=== PATIENT | male | born 1970 | race Caucasian/White ===

== ENCOUNTER 2016-12-29 22:20 | Emergency (ER) | payer OTHER, MEDICARE ==
--- NOTE | 2016-12-29 22:55 | ED PSYCHIATRIC COMPLAINT ---
History of Present Illness General Chief Complaint: Psychiatric Related Complaint Stated Complaint: ETOH AND SI Source: patient, old records Exam Limitations: no limitations Vital Signs & Intake/Output Vital Signs & Intake/Output Vital Signs Date Time Temp Pulse Resp B/P Pulse O2 O2 Flow FiO2 Ox Delivery Rate 12/30 1557 Room Air 12/30 1530 98.1 78 16 152/72 12/30 1530 98.1 78 16 152/72 96 Room Air 12/30 1420 98.3 81 15 135/84 12/30 1420 98.3 81 15 135/74 100 Room Air 12/30 0957 96.9 71 18 142/79 12/30 0956 96.9 71 18 142/79 99 Room Air 12/30 0916 99 Room Air 12/30 0702 97.5 86 16 132/78 94 Room Air 12/30 0348 97.1 82 16 138/72 96 Room Air 12/30 0048 97.1 83 16 138/70 95 Room Air 12/29 2301 Room Air 12/29 2255 96.9 83 16 142/67 92 Room Air ED Intake and Output 12/30 0000 12/29 1200 Intake Total 0 Output Total Balance 0 Intake, Oral 0 Triage Note: PT BIBA FOR ETOH AND +SI. PT DENIES HI. PT CALM AND COOPERATIVE ON ARRIVAL. Triage Nurses Notes Reviewed? yes Onset: Just prior to arrival Duration: hour(s):, constant, continues in ED Timing: recent history Severity: severe Associated Symptoms: impaired concentration, insomnia, suicidal ideation HPI: Patient reports being an alcoholic with cirrhosis continuing to drink feeling depressed with insomnia and thoughts of killing himself without a specific plan. He denies fever chills nausea vomiting diarrhea abdominal pain chest pain shortness of breath headache dysuria rash bleeding hallucination homicidal ideation. (NAVEED ANGELES MD) Allergies Coded Allergies: No Known Allergies (12/30/16) Reconcile Medications Furosemide (Unknown Strength) TABLET (Unknown Dose) PO DAILY WATER PILL ( Reported) Spironolactone (Aldactone) 50 MG TABLET 1 TAB PO DAILY LIVER (Reported) (JANEE FERNÁNDEZ DO) Past History Travel History Traveled to [place] past 21 day No Medical History Any Pertinent Medical History? see below for history Cardiovascular: hypertension Gastrointestinal: cirrhosis Surgical History Surgical History: non-contributory Psychosocial History What is your primary language Hebrew Tobacco Use: Current Not Daily ETOH Use: occasional use Family History Hx Contributory? No (NAVEED ANGELES MD) Review of Systems Review of Systems Constitutional: Reports: no symptoms. EENTM: Reports: no symptoms. Respiratory: Reports: no symptoms. Cardiovascular: Reports: no symptoms. GI: Reports: no symptoms. Genitourinary: Reports: no symptoms. Musculoskeletal: Reports: no symptoms. Skin: Reports: no symptoms. Neurological/Psychological: Reports: see HPI, depressed, emotional problems. Hematologic/Endocrine: Reports: no symptoms. Immunologic/Allergic: Reports: no symptoms. All Other Systems: Reviewed and Negative (NAVEED ANGELES MD) Physical Exam Physical Exam General Appearance: well developed/nourished, alert, awake, anxious, mild distress Head: atraumatic, normal appearance Eyes: Bilateral: normal appearance, PERRL, EOMI. Ears, Nose, Throat: normal pharynx, normal ENT inspection, hearing grossly normal Neck: normal inspection, supple Respiratory: normal breath sounds Cardiovascular: regular rate/rhythm Gastrointestinal: soft, non-tender Extremities: normal range of motion Neurological/Psychiatric: no motor/sensory deficits, awake, alert, making machine catcher II-XII nml as tested, depressed affect, oriented x 3 Appearance/Memory/Insight: disheveled, impaired insight Behavoir/Eye Contact/Speech: avoids eye contact, cooperative, normal speech Thoughts/Hallucinations: no apparent hallucination Skin: intact, normal color, warm/dry SAD PERSONS SAD PERSONS Response Value Male Sex? yes 1 Age <19 or >45 years? yes 1 Depression/Hopelessness? yes 2 Previous Attempts/Psych Care yes 1 Excessive Ethanol/Drug Use? yes 1 Rational Thinking Loss? yes 2 Single//? yes 1 Social Support? has support 0 Stated Future Intent? yes 2 Total 11 SAD PERSONS Done? yes (NAVEED ANGELES MD) Progress Differential Diagnosis: drug intoxication, drug overdose, drug withdrawal, electrolyte abnormality, hypoglycemia Plan of Care: Orders Procedure Date/time Status Regular Diet 12/30 B Active ED CRISIS PSYCH CONSULT 12/30 0727 Active Continuous Observation Monitor 12/30 0650 Active Continuous Observation Monitor 12/30 0250 Active Continuous Observation Monitor 12/29 2254 Active URINE DRUG SCREEN FOR ER ONLY 12/29 2254 Complete ETHANOL 12/29 2254 Complete COMPREHENSIVE METABOLIC PANEL 12/29 2254 Complete CBC WITHOUT DIFFERENTIAL 12/29 2254 Complete ED CRISIS PSYCH CONSULT 12/29 2254 Active Laboratory Tests 12/30/16 0958: Urine Opiates Screen < 100.00, Methadone Screen < 40, Barbiturate Screen < 60, Ur Phencyclidine Scrn < 6.00, Amphetamines Screen < 100, U Benzodiazepines Scrn < 85, Urine Cocaine Screen < 50, Urine Cannabis Screen < 5.00 12/30/16 0000: Anion Gap 10, Estimated GFR > 60, BUN/Creatinine Ratio 16.7, Glucose 89, Calcium 8.3 L, Total Bilirubin 2.8 H, AST 202 H, ALT 109 H, Alkaline Phosphatase 97, Total Protein 6.9, Albumin 3.4 L, Globulin 3.5, Albumin/Globulin Ratio 1.0 L, CBC w Diff NO MAN DIFF REQ, RBC 4.13 L, MCV 88.7, MCH 30.1, RDW 19.2 H, MPV 8.2, Gran % 61.5, Lymphocytes % 24.1, Monocytes % 9.6 H, Eosinophils % 4.2, Basophils % 0.6, Absolute Granulocytes 1.5, Absolute Lymphocytes 0.6 L, Absolute Monocytes 0.2, Absolute Eosinophils 0.1, Absolute Basophils 0, PUBS MCHC 33.9, Serum Alcohol 401.0 Hand-Off Endorsed To: JANEE FERNÁNDEZ DO Endorsed Time: 0700 Pending: consult, labs (utox) (NAVEED ANGELES MD) Departure Departure Disposition: STILL A PATIENT Condition: Stable Clinical Impression Primary Impression: Alcohol intoxication delirium Secondary Impressions: Major depression Qualifiers: Major depression recurrence: recurrent Active/Remission status: currently active Major depression episode severity: severe Psychotic features: without psychotic features Qualified Code: F33.2 - Major depressive disorder, recurrent severe without psychotic features Referrals: UNKNOWN (PCP/Family) Departure Forms: Customer Survey General Discharge Information (NAVEED ANGELES MD) Departure Comments 12/30/16 4 PM The patient was seen and evaluated and cleared by crisis. He denies homicidal or suicidal ideation. He is comfortable being discharged on a Ativan taper. He will follow up with outpatient rehabilitation programs and psychiatry. (JANEE FERNÁNDEZ DO)
[2016-12-30 00:14] LABS: ABSOLUTE BASOPHIL COUNT 0 /CUMM (0.0-0.2); ABSOLUTE EOSINOPHIL COUNT 0.1 /CUMM (0.0-0.7); ABSOLUTE GRANULOCYTE CT 1.5 /CUMM (1.4-6.5); ABSOLUTE LYMPH COUNT 0.6 /CUMM (1.2-3.4); ABSOLUTE MONOCYTE COUNT 0.2 /CUMM (0.10-0.60); BASOPHIL % 0.6 % (0.0-2.0); EOSINOPHIL % 4.2 % (0-5); GRANULOCYTE % 61.5 % (42.2-75.2); HEMATOCRIT 36.6 % (42-52); MEAN CORPUSCULAR HGB 30.1 PG (27.0-31.0); MEAN CORPUSCULAR HGB CONC 33.9 G/DL (33.0-37.0); MEAN CORPUSCULAR VOLUME 88.7 FL (80.0-94.0); MEAN PLATELET VOLUME 8.2 FL (7.4-10.4); PLATELET COUNT 53 /CUMM (130-400); RBC DISTRIBUTION WIDTH 19.2 % (11.5-14.5); RED BLOOD CELL CT 4.13 /CUMM (4.70-6.10); WHITE BLOOD CELL COUNT 2.4 /CUMM (4.8-10.8)
[2016-12-30] MEDS ORDERED: ALDACTONE50 M1 PO (09:48)
[2016-12-30] MEDS ORDERED: FUROSEMIDE40 M1 PO (09:48)
[2016-12-30 15:30] VITALS: BP 152/72
--- NOTE | 2016-12-30 15:47 | ED PSYCH CRISIS CONSULTATION ---
Crisis Consult Basic Assessment Date of Consult: 12/30/16 Responsible Person/Accompanied By: Self Insurance Authorization: Insurance #1: Insurance name: [employer] Phone number: Policy number: [id number] Group number: Authorization number: ED Provider: Patient's ED Provider: NAVEED ANGELES MD Primary Care Physician: Patient's PCP: UNKNOWN PCP's Phone Number: Current Psychiatrist: Marcello Adair MD Chief Complaint: Psychiatric Related Complaint Patient's Quote: "The drinking is out of control." Present Illness: The patient is a 46 year old single male BIBA to the ED with a complaint of depression and suicidal ideation. The patient presented as intoxicated with a BAL of 401 at 00:00. The patient presented as anxious, depressed and with trembling hands. The patient reports he had suicidal ideation last night while intoxicated with a plan to "slice his wrists with a knife if he had one." The patient denies current suicidal ideation and states "I just want to go home and take medication for my shakes." The patient reports normal sleep, concentration, energy and motivation stating "I just set up my whole apartment two weeks ago." The patient reports limited appetite stating "I only pick at things". The patient denies any history prior suicide attempts, HI, auditory hallucinations and visual hallucinations. The patient reports a history of depression and that he is compliant with his psychiatric medication. The patient reports a history of alcohol abuse/dependence starting in 1998 when his mother . He reports a history of detoxes, inpatient treatment, IOP and attending AA meetings. His most recent treatment being at [facility] in 2014. He reports being sober from 2009 to 2013 and relapsing in 2013 (a fight with his sister and her being the trigger.) He reports drinking an average of 4- 5 premixed Margaritas daily the past two weeks. He reports the trigger being his cousin bringing over alcohol two weeks ago to his new apartment. He reports the trigger for drinking excessively last night as the landlord not allowing him to keep his cat. The patient reports that he feels safe to return home and that his brother checks on him every day. The patient is agreeable to an assessment for IOP to treat his depression and alcohol dependence. Spoke to patient's brother, Mary Brunilda, . Mary states that the patient has been struggling with alcohol since their mother in 1998. Mary states the patient has a history of drinking, becoming depressed and calling the ambulance to bring him to the hospital. mary states the patient has no prior history of suicide attempts and that he feels the patient is safe to return home. Mary states the patient has been drinking heavily since moving into his new apartment three weeks ago. Mary states he believes the patient's cousin who just recently came to [place] from [place] is bringing the patient alcohol. The patient's cousin has active substance abuse issues. Mary states that he checks on the patient every day, feels he is safe and is picking up the patient at the ED. Mary agrees the patient would benefit from medication for his depression and group therapy in [facility]. This report prepared by DENNIS [address] Light Servicer Supervisor and signed off by Calderon Gorman LCSW Patient's Address: [address] [place] [address] Other Phone Number: Who Do You Live With? Patient/Self Family/Informants Interviewed: Brother-Mary Worley Allergies - Coded Allergies: No Known Allergies (12/30/16) Current Medications - Scheduled Medications Furosemide (Unknown Strength) TABLET (Unknown Dose) PO DAILY WATER PILL ( Reported) Entered as Reported by JENNY ZELAYA on 12/30/16 0948 Spironolactone (Aldactone) 50 MG TABLET 1 TAB PO DAILY LIVER (Reported) Entered as Reported by JENNY ZELAYA on 12/30/16 0948 Laboratory Results: Laboratory Tests 12/30/16 0958: Urine Opiates Screen < 100.00, Methadone Screen < 40, Barbiturate Screen < 60, Ur Phencyclidine Scrn < 6.00, Amphetamines Screen < 100, U Benzodiazepines Scrn < 85, Urine Cocaine Screen < 50, Urine Cannabis Screen < 5.00 12/30/16 0000: Anion Gap 10, Estimated GFR > 60, BUN/Creatinine Ratio 16.7, Glucose 89, Calcium 8.3 L, Total Bilirubin 2.8 H, AST 202 H, ALT 109 H, Alkaline Phosphatase 97, Total Protein 6.9, Albumin 3.4 L, Globulin 3.5, Albumin/Globulin Ratio 1.0 L, CBC w Diff NO MAN DIFF REQ, RBC 4.13 L, MCV 88.7, MCH 30.1, RDW 19.2 H, MPV 8.2, Gran % 61.5, Lymphocytes % 24.1, Monocytes % 9.6 H, Eosinophils % 4.2, Basophils % 0.6, Absolute Granulocytes 1.5, Absolute Lymphocytes 0.6 L, Absolute Monocytes 0.2, Absolute Eosinophils 0.1, Absolute Basophils 0, PUBS MCHC 33.9, Serum Alcohol 401.0 Past History Past Medical History Cardiovascular: hypertension Gastrointestinal: cirrhosis Past Surgical History Surgical History: non-contributory Psychosocial History Strengths/Capabilities: Patient has insight into his triggers that have him relapse. Patient willing to seek help for himself. Physical Limitations (Interventions): None Psychiatric Treatment History Psych Treatment Psychiatric Treatment Yes Inpatient Treatment Yes Outpatient Treatment Yes Location of Treatment [facility] 2015 Reason for Treatment Depression and alcohol dependence Dates of Treatment 2015 Response to Treatment Patient relapsed with alcohol and has been drinking daily the past two weeks. Patient reported depression and SI when presenting to ED, but currently denies SI. Diagnosis by History: Depression and Alcohol Dependence Substance Use/Abuse History Drug Use/Abuse Substances Used/Abused Yes Substance Used/Abused Alcohol First Use 1998 Last Used 12/29/16 How much used/taken In excess of 5 drinks, cannot recall exactly YPH=684 at 00.00 How often Daily For how long Daily for past two weeks Route of use Oral Substance Abuse Treatment Substance Abuse Treatment Past Substance Abuse [place] Yes Inpatient Treatment Yes Outpatient Treatment Yes Location of Treatment [facility]; [facility] in [place] Reason for Treatment Alcohol dependence and depression Dates of Treatment 2014 Response to Treatment Relapse with alcohol. reports drinking daily the past two weeks. Comments: None Current Mental Status Mental Status Orientation: Person, Place, Situation Affect: Anxious, Depressed Speech: WNL Neuro-vegetative: Appetite Decreased Appearance Appearance- Dress/Hygiene: Patient was dressed in hospital gown and disheveled. Patient's hands were tremulous. Behaviors Thought Process: WNL Thought Content: WNL Memory: WNL Insight: Fair SI/HI Risk Assessment Past Suicidal Ideation/Attempts Yes Current Suicidal Ideation/Att No (Pt denies current SI) Past Homicidal Ideation/Att: No Current Homicidal Ideation/Attempts No Degree of Intent: Pt. reported SI with plan to slice wrists when intoxicated and then denied SI when sober Danger To: N/A Gravely Disabled: N/A Risk Factors: chronic/serious med cond., SA/MH hospitalized, substance abuse, lives alone, male, limited support Lethality Ratin PTSD Checklist PTSD Done? patient declined (Pt denies hx of trauma) ED Management Sitter: Yes Restraints: No DSM5/PS Stressors/Medical Prob Diagnosis' (DSM 5, Stressors, Medical): F32.9 Unspecified Depressive Disorder F10.20 Alcohol Use Disorder Severe Current GAF: 42 Comments: None Departure Disposition Psych Medical Clearance Date: 12/30/16 Medically Cleared at: 1420 Time Started: 1420 Time Ended: 1505 Psychiatrist Consulted: Mana WEBBER,Edward Date Disposition Established: 12/30/16 Time Disposition Established: 1529 Plan for Disposition - Modality: IOP Facility: [facility] Follow-up Appt Date: 01/02/17 Follow-Up Appt Time: 0930 Telephone: [phone] Rationale for Disposition: Patient denies current suicidal ideation. Patient has depression and alcohol dependence relapsing and drinking daily the past two weeks. The patient feels safe to return home. The patient agrees he would benefit from medication for his depression and group therapy in IOP. Appointment made for IOP intake @ 9:30 a.m. Additional Instructions: None Referrals UNKNOWN (PCP/Family)
[2016-12-30] MEDS ORDERED: ATIVAN1 M1 PO (16:12)
== END 2016-12-30 16:24 ==
LOC: ERH 22:20
PROVIDERS: Emergency Medicine
DX: F10.121 Alcohol abuse with intoxication delirium (principal); F32.9 Major depressive disorder, single episode, unspecified
CPT/HCPCS: 80307; G0463; G0480